=== PATIENT | male | born 1985 | race Caucasian/White ===

== ENCOUNTER 2017-04-23 20:10 | Emergency (ER) | payer OTHER ==
[~2017-04-23] VITALS: Ht 175.3 cm; Wt 95.0 kg
[~2017-04-23 20:10] MED LIST: ARIP2TAB10 PO; CRB200T PO
[2017-04-23 20:12] VITALS: BP 141/86; PULSE 89; RESP 16; O2SAT 96
[2017-04-24 00:07] VITALS: BP 103/67; PULSE 72; RESP 17; O2SAT 98
--- NOTE | 2017-04-24 00:15 | ED.REPORT ---
HPI-Psychiatric Illness Date of Service Apr 24, 2017 ED Provider: Duane Shea MD Pt is a 32 year old male with a hx of bipolar, alcohol syndrome, and SI presenting to the ED complaining of depression onset months ago. His mother 1 month ago and his thoughts of suicidal ideation have increased. Pt states that he is so stressed out he wants to jump in front of a train or a car, he just does not want to be here anymore. He was supposed to go visit his mother this summer so now that she is passed that is a stressor. He denies drinking any alcohol today or any other symptoms at this time. Nursing Notes Stated Complaint: SUICIDAL Chief Complaint: Psychiatric Complaint Nursing Notes Reviewed: Yes Allergies: Coded Allergies: No Known Allergies (Verified Allergy, Unknown, 04/23/17) Scheduled Aripiprazole (Abilify) 2 Mg Tablet Unknown Dose PO DAILY Carbamazepine (Carbamazepine) 200 Mg Tablet 200 MG PO BID General Time Seen by MD: 00:12 Chief Complaint Suicidal ideation Hx Obtained From: Patient Arrived By: Walk-in Onset Occurred: Just prior to arrival Symptom Duration: Since onset Progression Since Onset: Constant Severity: Current: No pain currently Severity: Maximum: No pain Recent Healthcare: No recent doctor visit, No recent hospitalization Similar Sx Previous: Yes Risk-Psychiatric Illness Suicide Risk Stratification Suicide Risk Factors - Adult: : Prior psych admission RF Statements: Risk factors reviewed Past Medical History Past Medical History Bipolar Hx of ER visits for SI Depression alcohol syndrome Past Surgical History Reports: Appendectomy Family History Noncontributory Smoking History Current Every Day Smoker Social History Alcohol Use: "Social" Drug Use: THC Other Social History: Good social support, Local resident Occupation lives with partner, no work or school Ambulatory Status Independent Review of Systems Constitutional: Denies: Weakness - generalized Respiratory: Denies: Wheezing GI: Denies: Vomiting Psychiatric: Reports: Stress, Suicidal ideation Complete sys rev & neg: except as marked. Physical Exam Initial Vital Signs Vital Signs (First) Date Time Temp Pulse Resp B/P Pulse Ox O2 Delivery O2 Flow Rate FiO2 04/23/17 20:12 36.3 89 16 141/86 96 Room Air Initial VS: Reviewed, Vital signs normal Head / Eyes: Atraumatic, Normocephalic, PERRL ENT: Mucous membranes moist, Conjunctiva normal, No scleral icterus Respiratory: Breath sounds normal, Clear to auscultation, No respiratory distress Cardiovascular: Regular rate & rhythm, Heart sounds normal, Intact distal pulses Abdomen / GI: Soft, Non-tender, No guarding, No rebound, No distention Extremities: Vascular intact, Neuro intact, No swelling, No tenderness Skin: Warm, Dry, No cyanosis General/Constitutional: Awake, Alert Behavior: Positive: Tearful Neurologic: Oriented X3, Speech NL, No motor deficits, No sensory deficits, Memory NL Abnormal Mood/Affect: Positive: Depressed Abnormal Thinking / Perception: Positive: Suicidal, with plan Tearful. Pt laughing Re-Eval/Medical Decision Med Decision/Clinical Course 32-year-old male with considerable psychosocial stressors including recent . Presents with suicidal depression. His care will be turned over at change of shift to Dr. Torres while awaiting mental health evaluation for voluntary admission. Re-Evaluation/Progress : Time of Eval: 06:00 Patient Status: Condition improved Re-Evaluation/Progress Note: Care transferred to Dr. Torres Counseled Regarding: Diagnosis, Lab results, Need for follow-up, When/why to return to ED Discharge & Departure Impression: Primary Impression: Suicidal ideation Disposition: ADMITTED TO HOSPITAL Discharge Condition All VS Reviewed: Yes Condition: Improved Referrals: Sherrill Piedra MD (PCP) Care Transferred to: Care transferred to Dr. Torres Care Transferred at: 06:00 Scribe Attestation Portions of this note were transcribed by Afua Ortiz. I, Dr. Shea personally performed the history, physical exam and medical decision-making; I reviewed and confirmed the accuracy of the information in the transcribed note. Signed by: Lucio Loaiza, 04/24/17 and 0600. copies to: Sherrill Piedra MD, Duane Balderrama MD Apr 24, 2017 00:15 AFUA ORTIZ Apr 24, 2017 00:23
[2017-04-24] MEDS ORDERED: carBAMazepine 200 mg Tablet PO ONE ×2 (00:20)
[2017-04-24] MEDS ORDERED: LORazepam 1 mg Tablet PO ONE (00:30)
[2017-04-24 04:53] VITALS: BP 130/80; PULSE 81; RESP 15; O2SAT 95
[2017-04-24 06:00] LABS: BASOPHILS % (AUTO) 0.2 % (0-3); EOSINOPHILS % (AUTO) 0 % (0-5); MONOCYTES % (AUTO) 11.1 % (4-12); Mean Corpuscular Hemoglobin 28.1 pg (27.0-35.0); Mean Corpuscular Volume 81.8 fL (81-100); Platelet Count 214 bil/L (150-400)
[2017-04-24 08:32] VITALS: BP 119/75; RESP 18; O2SAT 96
[2017-04-24] MEDS ORDERED: CARB200T PO (09:47)
[2017-04-24] MEDS ORDERED: carBAMazepine 200 mg Tablet PO SCH (14:10)
[2017-04-24 14:45] VITALS: BP 109/65; PULSE 81; RESP 16; O2SAT 97
[2017-04-24 18:53] VITALS: BP 128/75; PULSE 75; RESP 18; O2SAT 95
== END 2017-04-24 18:55 | disposition home or self-care (01) ==
LOC: SED 20:10
DX: R45.851 Suicidal ideations (principal); F32.9 Major depressive disorder, single episode, unspecified; F17.200 Nicotine dependence, unspecified, uncomplicated; F31.9 Bipolar disorder, unspecified; Q86.0 Fetal alcohol syndrome (dysmorphic)